=== PATIENT | male | born 1985 | race Caucasian/White ===

== ENCOUNTER 2019-12-07 08:33 | Emergency (ER) | payer BC, SELFPAY ==
[2019-12-07] MEDS ORDERED: Lorazepam 2 MG/ML VIAL ONE (08:54)
[2019-12-07] MEDS ORDERED: Aspirin Chewable 81 MG TAB ONE (08:54)
[2019-12-07 08:59] LABS: #Basophils 0.1 thou/uL (0.0-0.2); #Eosinphils 0.1 thou/uL (0.0-0.7); #Lymphocytes 1.2 thou/uL (1.20-3.40); #Monocytes 0.4 thou/uL (0.11-0.59); #Neutrophils 3.1 thou/uL (1.40-6.50); %Basophils 2.3 % (0.0-1.0); %Eosinophils 2.9 % (0.0-10.0); %Lymphocytes 23.7 % (21.0-51.0); %Neutrophils 62.2 % (42.0-75.0); Hemoglobin 14.9 g/dL (14.0-18.0); Mean Corpuscular HGB CONC 32.3 g/dL (32.0-36.0); Mean Corpuscular Hemoglobin 31.1 pg (27.0-31.0); Mean Corpuscular Volume 96.4 fL (78.0-98.0); Mean Platelet Volume 7.2 fL (7.4-10.4); Platelet Count 244 thou/uL (130-400); RBC Distribution Width 13.7 % (11.5-14.5); White Blood Cell (WBC) Count 4.9 thou/uL (4.8-10.8)
[2019-12-07 09:16] LABS: ALT (SGPT) 38 U/L (8-55); AST (SGOT) 42 U/L (5-34); Albumin 4.8 g/dL (3.5-5.0); Alkaline Phosphatase 66 U/L (40-110); Anion Gap 15 mmol/L (10-20); BUN (Urea Nitrogen) 12 mg/dL (8.9-20.6); Bilirubin, Total 0.8 mg/dL (0.2-1.2); Calc. Creatinine Clearance 0 mL/min (70-130); Calcium 9.6 mg/dL (7.8-10.44); Carbon Dioxide 25 mmol/L (22-29); Chloride 99 mmol/L (98-107); Estimated GFR-MDRD Greater than 90; Globulin 2.8 g/dL (2.4-3.5); Glucose 217 mg/dL (70-105); Potassium 3.9 mmol/L (3.5-5.1); Protein, Total 7.6 g/dL (6.0-8.3); Sodium 135 mmol/L (136-145)
[2019-12-07 09:40] LABS: Bilirubin Negative (Negative); Blood, Urine Negative (Negative); Clarity Clear (Clear); Glucose, Urine (Dipstick) 500 mg/dL (Negative); Leukocyte Negative (Negative); Nitrite Negative (Negative); Protein, Urine (Dipstick) Negative (Neg-Trace)
[2019-12-07 09:50] LABS: Amphetamine Not Detected (NotDetected); Barbiturates Screen Not Detected (NotDetected); Benzodiazepine Screen Not Detected (NotDetected); Cocaine Metabolite Screen Not Detected (NotDetected); Medtox Control Line Valid? VALID (VALID); Methadone Not Detected (NotDetected); Methamphetamine Not Detected (NotDetected); Opiate Screen Not Detected (NotDetected); Oxycodone Screen Not Detected (NotDetected); Phencyclidine (PCP) Not Detected (NotDetected); THC/Cannabinoid Screen Not Detected (NotDetected); Tricyclic Screen Not Detected (NotDetected)
--- NOTE | 2019-12-07 10:42 | RAD ---
PORTABLE CHEST: Date: 12-07-2019 An AP portable film at 0857 is compared with a 08-22-08 study. FINDINGS: The heart remains normal in size and the lungs are clear. No infiltrate or effusion was seen. There i s no congestion or edema. There is very slight curving of the trachea towards the right at the thorac ic inlet. It might be well to do a thyroid exam. IMPRESSION: POS: HOME
== END 2019-12-07 10:05 | disposition home or self-care (01) ==
LOC: BURERS 08:33
DX: R07.2 Precordial pain (principal); R73.9 Hyperglycemia, unspecified; F41.9 Anxiety disorder, unspecified; F17.210 Nicotine dependence, cigarettes, uncomplicated; Z79.899 Other long term (current) drug therapy
CPT/HCPCS: 36416; 71045; 80053; 80306; 81003; 83880; 84484; 85025; 93005; 96374; J2060